=== PATIENT | female | born 1990 | race Hispanic/Latino ===

== ENCOUNTER 2025-02-28 20:11 | Emergency (ER) | payer OTHER, SELFPAY ==
[2025-02-28 20:21] VITALS: BP 131/86
[2025-02-28 20:45] VITALS: BMI 29.2
--- NOTE | 2025-02-28 22:18 | ED.GENMED ---
History of Present Illness
General
Chief Complaint: Female [employer]er/Gu symptoms
Source: patient
Exam Limitations: none
Time Seen by Provider: 02/28/25 21:01
Nursing documentation reviewed up to this point in time: agreed with
History of Present Illness
History of Present Illness:
Patient is a 35-year female who presents to the ER for evaluation. Patient started with an itchy rash to her perennial region for the past several months. 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 Urgent care gave
nystatin cream however that has not relieved her symptoms. She now reports that it feels a little burning. She also has a rash to bilateral legs. She denies any new lotions shaving creams soaps detergents excetra. She denies any urinary
dysuria/burning pain. Denies any abdominal pain nausea vomiting fever chills. She does report she seems to urinate more frequently. Denies any increased thirst or other symptoms.
Past History
Past History
ED Past Medical History: Other (Anemia)
ED Past Surgical History: (x 2)
Social History
Tobacco: Non-smoker
Alcohol: None
Drug: None
Phy Exam
General Physical Exam
General Presentation: no apparent distress
General age: appears stated age
General Skin: warm and dry
General Habitus: normal
General Mental: alert
General Hydration: appears well hydrated
Neurological Exam
Neurological Exam: alert and oriented x3
Musculoskeletal Exam
Musculoskeletal Exam: full ROM
Skin Exam
Skin Exam: normal color, warm/dry and other (dried skin to perineum region and macular rash to b/l thighs no erythema no drainage no vesicles )
Psychiatric Exam
Psychiatric Exam: normal mood/affect
Course
Orders/Labs/Results
Orders:
Orders
02/28/25 22:32
Test Result ONCE
02/28/25 22:33
HCG, Urine Qualitative Screen Urgent
Date Specimen was Collected: 02/28/25
Time Specimen was Collected: 22:32
UA Reflex to Culture [Urinalysis Reflex To Culture] Urgent
Date Specimen was Collected: 02/28/25
Time Specimen was Collected: 22:31
Urine Microscopic Reflex Cult Urgent
02/28/25 23:26
Hydrocortisone [Hydrocortisone 1% Ointment] See Dose Instructions TOPICAL NOW STA
Abnormal Lab Results
02/28/25
22:33
Ur Occult Blood Reflex 3+ A
(Negative)
Urine RBC 7-10 A /HPF
(0-2)
Urine Bacteria (Reflex) Few A
(Negative)
Urine Albumin (Reflex) 1+ A
(Neg - Trace)
Vital Signs
Initial and Last Documented VS:
Initial Vital Signs
Temp Pulse Resp BP Pulse Ox
98.1 F 107 20 131/86 99
02/28/25 20:21 02/28/25 20:21 02/28/25 20:21 02/28/25 20:21 02/28/25 20:21
Last Documented Vital Signs
Temp Pulse Resp BP Pulse Ox
98.4 F 83 17 107/74 99
02/28/25 23:10 02/28/25 23:10 02/28/25 23:10 02/28/25 23:10 02/28/25 23:13
MDM/Problems Addressed
Differential Diagnosis Includes:
Possible contact dermatitis
MDM/Problems Addressed:
Patient started out with an itchy rash that is now burning in nature to her perennial region. Area appears dry. She does have rash to bilateral thighs as well. She is nontoxic no fever would recommend follow-up with gynecology as well as
dermatology. Will give hydrocortisone cream
*Pulse Oximetry
SaO2: 99
Oxygen Mode of Delivery: Room air
Patient hypoxic: no
*Critical Care Note
Total Time (30-74mins, 75-104mins- exclusive of procedures): Not Applicable
ED Attending Note
-
Portions of this chart may have been created with voice recognition software.� Occasional wrong word or��sound alike� substitutions may have occurred due to the inherent limitations of voice recognition software.
Discharge Plan
Departure
Patient Disposition: Home (Routine Discharge)
Date of Disposition: 02/28/25
Time of Disposition: 23:13
Patient with high blood pressure during this ER visit?: No
Condition: Fair
Covid-19: Not Applicable
Discharge Problem:
Rash
Instructions: BLOOD PRESSURE
Prescriptions:
No Action
oxycodone 5 mg tablet
5 mg PO Q4H PRN (Reason: pain) Qty: 10 0RF
ketorolac 10 mg tablet
10 mg PO QID PRN (Reason: pain) 5 Days Qty: 20 0RF
Referrals:
Lisa Lopez MD [Family Provider, Family Practice]
Activity Restrictions/Additional Instructions:
Follow up with your family doctor in the next several days as well as dermatology please call to make an appointment. You may use hydrocortisone to the area twice a day. Return with any worsening of symptoms.
Interventions
Interventions:
*Risk Screen - Suicide Last Done: 02/28/25 20:45
*General Assessment Last Done: 02/28/25 20:21
*Neglect/Abuse Screening Last Done: 02/28/25 20:45
*ED COVID-19 Vaccine History Last Done: 02/28/25 20:45
*ED Influenza Vaccine History Last Done: 02/28/25 20:45
[facility] Risk Assessment Tool Last Done: 02/28/25 20:45
ED-Female Genitourinary Assessment Last Done: 02/28/25 22:36
Discharge Date and Time
Print Language: LAO
[2025-02-28 22:42] LABS: HCG, Urine Qualitative Screen Negative
[2025-02-28 22:53] LABS: Urine Character Clear (Clear)
[2025-02-28 22:59] LABS: Urine Squamous Cell >30 /LPF (Few)
[2025-02-28 23:10] VITALS: BP 107/74
[2025-02-28 23:16] LABS: Glucose - Point of Care 95 mg/dl (70-99)
[2025-02-28] MEDS: HYDROCORTISONE 1% OINTMENT 1 APPLIC TOPICAL (23:36)
== END 2025-02-28 23:45 | disposition home or self-care (01) ==
LOC: EMR 20:11
PROVIDERS: Nurse Practitioner; EMERGENCY PHYSICIAN Emergency Medicine; FAMILY PHYSICIAN Family Medicine
DX: R21 Rash and other nonspecific skin eruption (principal)
CPT/HCPCS: 99283; 81003; 81015; 81025; 82962